=== PATIENT | female | born 1980 | race African-American/Black ===

== ENCOUNTER 2018-08-07 01:01 | Emergency (ER) | payer OTHER ==
[~2018-08-07] VITALS: Ht 154.9 cm; Wt 52.2 kg
[2018-08-07 01:16] VITALS: BP 133/82
--- NOTE | 2018-08-07 01:27 | Emergency Room Report ---
History of Present Illness General Chief Complaint: Skin Rash/Abscess Source: Patient Present Illness HPI This is a 38-year-old female with no past medical history. She presents with chief point of an abscess to her left face. Onset for last couple days. All this history is from the triage nursing note. Patient was brought to her room. I wanted to see the patient and she left without being seen by me. Allergies: Coded Allergies: No Known Allergies (Unverified , 08/07/18) Patient History Past Medical History: see triage record, old chart reviewed Past Surgical History: other Pertinent Family History: none Social History: Denies: smoking Last Menstrual Period: 07/24 Now: No : 4 Para: 3 Immunizations: other Reviewed Nursing Documentation: PMH: Agreed; PSxH: Agreed Nursing Documentation-PMH Past Medical History: No Stated History Physical Exam Vital Signs Date Time Temp Pulse Resp B/P (MAP) Pulse Ox O2 Delivery O2 Flow Rate FiO2 08/07/18 01:08 98.2 102 17 133/82 99 08/07/18 01:16 Room Air Medical Decision Making Diagnostic Impression: Primary Impression: Abscess Last Vital Signs Date Time Temp Pulse Resp B/P (MAP) Pulse Ox O2 Delivery O2 Flow Rate FiO2 08/07/18 01:16 98.2 72 17 133/82 99 Room Air Status: unchanged Disposition: LEFT W/OUT BEING SEEN Condition: Stable Referrals: NOT CHOSEN IPA/,REFERRING (PCP) Boo George MD Aug 07, 2018 01:27
== END 2018-08-07 01:28 | disposition left against medical advice (07) ==
LOC: EMR 01:16
DX: L02.01 Cutaneous abscess of face (principal); Z53.21 Procedure and treatment not carried out due to patient leaving prior to being seen by health care provider